=== PATIENT | male | born 1955 | race American Indian/Alaskan Native ===

== ENCOUNTER 2021-07-15 18:07 | Inpatient (IN) | payer MEDICAID ==
[~2021-07-15] VITALS: Ht 170.2 cm; Wt 147.2 kg
[~2021-07-15 18:07] MED LIST: ASPI-1265 PO; CETI10TA51 PO; CHOL100046 PO; EXEN2VIA SUBCUT; FLO0.4C PO; FOLI1TAB16 PO; METF-900 PO; MONT10TA21 PO; OMEG1CAP2 PO; PANT40TA54 PO; PRAV40TA3 PO
[2021-07-15 19:24] LABS: LYMPHOCYTES # (AUTO) 0.6 X10'3 (1.1-4.8); MEAN PLATELET VOLUME 8.8 FL (7.4-10.4)
[2021-07-15 19:25] LABS: BASOPHILS # (AUTO) 0.1 X10'3 (0-0.2); BASOPHILS % (AUTO) 0.6 % (0-1); EOSINOPHILS % (AUTO) 0.3 % (0-6); HEMATOCRIT 42.7 % (42.0-52.0); LYMPHOCYTES % (AUTO) 4.7 % (21-51); MEAN CORPUSCULAR HEMOGLOBIN 32.4 PG (27.0-31.0); MEAN CORPUSCULAR HGB CONC 35.2 g/dL (33.0-36.5); MEAN CORPUSCULAR VOLUME 92.1 FL (78-98); MONOCYTES # (AUTO) 1.2 X10'3 (0-0.9); MONOCYTES % (AUTO) 8.8 % (2-12); NEUTROPHILS # (AUTO) 11.4 X10'3 (1.8-7.7); NEUTROPHILS % (AUTO) 85.6 % (42-75); PLATELET COUNT 244 X10'3 (140-440); RED BLOOD COUNT 4.63 X10'6 (4.70-6.10); RED CELL DISTRIBUTION WIDTH 13.7 % (11.5-14.5); WHITE BLOOD COUNT 13.3 X10'3 (4.5-11.0)
[2021-07-15 19:35] LABS: APTT 25 SECONDS (22-32)
[2021-07-15 19:44] LABS: ALANINE AMINOTRANSFERASE 42 U/L (12-78); ALBUMIN 1.9 G/DL (3.4-5.0); ALBUMIN/GLOBULIN RATIO 0.4 (1.1-1.5); ALKALINE PHOSPHATASE 136 IU/L (46-116); ANION GAP 10 (8-16); ASPARTATE AMINO TRANSFERASE 45 U/L (10-37); BILIRUBIN,TOTAL 0.7 MG/DL (0.1-1.0); BLOOD UREA NITROGEN 32 MG/DL (7-18); BUN/CREATININE RATIO 19.4 (5.4-32.0); CHLORIDE 93 MMOL/L (99-107); CREATININE 1.65 MG/DL (0.60-1.10); GLUCOSE 258 MG/DL (70-104); POTASSIUM 3.5 MMOL/L (3.5-5.1); SODIUM 130 MMOL/L (135-145); TOTAL CARBON DIOXIDE 26.6 MMOL/L (24-32); TOTAL PROTEIN 7.3 G/DL (6.4-8.2); eGFR 42 ML/MIN
[2021-07-15] MEDS ORDERED: normal saline 1000ML IV soln IV ONE (20:15)
[2021-07-15 20:19] LABS: D-DIMER 10.63 MG/L FEU (0-0.50)
[2021-07-15 20:25] LABS: PLATELET ESTIMATE NORMAL; TOTAL CELLS COUNTED 100
[2021-07-15] MEDS ORDERED: iohexol 350MG/ML 100ml bottle IV ONE (20:33)
[2021-07-15] MEDS ORDERED: CefTRIAXone/D5W-Rocephin 1gm 50 ML IV ONE (21:20)
[2021-07-15] MEDS ORDERED: ketorolac tromethamine 15mg/ml inj. IV ONE (23:10)
[2021-07-15 23:32] LABS: CLARITY,URINE CLOUDY (Clear); COLOR,URINE YELLOW (Yellow); GLUCOSE, URINE >=1000 mg/dl (Neg); KETONES,URINE 15 mg/dl (Neg); LEUKOCYTE ESTERASE ,URINE MODERATE (Neg); NITRITES, URINE NEGATIVE (Neg); OCCULT BLOOD,URINE LARGE (Neg); PH,URINE 5.5 (4.8-8.0); PROTEIN,URINE TRACE mg/dl (Neg)
[2021-07-15 23:39] LABS: UA COLLECTION TYPE NON-SPECIFIED
[2021-07-15 23:41] LABS: RBC,URINE 20-50 /HPF (0-2); WBC,URINE 50-100 /HPF (0-4)
[2021-07-15 23:42] LABS: SQUAMOUS EPITHELIAL CELL,UR FEW /LPF (FEW)
[2021-07-15 23:43] LABS: BACTERIA,URINE 3+ /HPF (Neg); MUCUS STRANDS FEW /LPF (Neg); TRANSITIONAL EPI CELLS,URINE FEW /HPF; WBC CLUMPS,URINE MODERATE /HPF (NEGATIVE)
[2021-07-15 23:44] LABS: CELLULAR CAST 0-4 /LPF (NEGATIVE)
[2021-07-16] MEDS ORDERED: magnesium 2GM in 50ml NS 50 ML IV PRN (00:10)
[2021-07-16] MEDS ORDERED: acetaminophen 650mg rectal suppository RC PRN (00:10)
[2021-07-16] MEDS ORDERED: bisacodyl 10mg suppository rectal RC PRN (00:10)
[2021-07-16] MEDS ORDERED: mag hydrox/Alum hydrox/simeth 30ml oral suspension PO PRN (00:10)
[2021-07-16] MEDS ORDERED: magnesium Cl slow-release 64mg tablet PO PRN (00:10)
[2021-07-16] MEDS ORDERED: morphine 2 MG/ML inj. syringe IV PRN ×2 (00:10)
[2021-07-16] MEDS ORDERED: HYDROcodone/acetaminophen 5mg/325mg tablet PO PRN (00:10)
[2021-07-16] MEDS ORDERED: magnesium 4gm in 100ml NS 100 ML IV PRN (00:10)
[2021-07-16] MEDS ORDERED: potassium CL 10mEq/100ml bag 100 ML IV PRN (00:10)
[2021-07-16] MEDS ORDERED: diphenhydrAMINE 25mg capsule PO PRN (00:10)
[2021-07-16] MEDS ORDERED: ondansetron 4mg rapidly disintigrating tab PO PRN (00:10)
[2021-07-16] MEDS ORDERED: ondansetron/PF 4mg/2ml inj IV PRN (00:10)
[2021-07-16] MEDS ORDERED: diphenhydrAMINE 50 mg/ml inj IV PRN (00:10)
[2021-07-16] MEDS ORDERED: magnesium hydroxide 30ml (MOM) UD suspension PO PRN (00:10)
[2021-07-16] MEDS ORDERED: potassium Cl 20 mEq SR tablet PO PRN (00:10)
[2021-07-16] MEDS ORDERED: acetaminophen 325mg tablet PO PRN ×2 (00:10)
[2021-07-16] MEDS ORDERED: dextrose 50%-water 50ml dispensing syringe IV PRN ×2 (00:15)
[2021-07-16] MEDS ORDERED: insulin Lispro (HumaLOG) vial - multi-dose SQ SCH (00:15)
[2021-07-16] MEDS ORDERED: MESSAGE TO PHARMACY PO ONE (00:15)
[2021-07-16] MEDS ORDERED: glucagon, human recombinant 1mg kit SUBCUT PRN (00:15)
[2021-07-16] MEDS ORDERED: dextrose ORAL solution 15 GM/59 ML bottle PO PRN ×2 (00:15)
[2021-07-16] MEDS: normal saline 1000ml 1,000 ML IV SCH ×2 (00:54→10:10)
[2021-07-16 01:29] LABS: APTT 26 SECONDS (22-32)
[2021-07-16 01:33] LABS: HEMOGLOBIN A1C 8.7 % (4.5-6.2)
[2021-07-16 01:36] LABS: MAGNESIUM 2.2 MG/DL (1.5-2.4); PHOSPHORUS 2.2 MG/DL (2.3-4.5)
[2021-07-16 01:49] LABS: URINE AMPHETAMINE SCREEN NEGATIVE (Neg); URINE BARBITUATE SCREEN NEGATIVE (Neg); URINE BENZODIAZEPINES SCREEN NEGATIVE (Neg); URINE CANNABINOID SCREEN NEGATIVE (Neg); URINE COCAINE SCREEN NEGATIVE (Neg); URINE METHADONE SCREEN NEGATIVE (Neg); URINE OPIATE SCREEN NEGATIVE (Neg); URINE PHENCYCLIDINE SCREEN NEGATIVE (Neg)
[2021-07-16] MEDS: potassium Cl 20 mEq SR tablet PO PRN ×2 (02:26→09:36)
--- NOTE | 2021-07-16 02:28 | NUR ---
pt became sob and compl;aining of fall body chills and uncontrollable shaking. temp 98.2 and bg 223. charge nurse notified ad will continue to monitor
[2021-07-16] MEDS: docusate sod 100mg capsule PO SCH ×2 (08:00→20:33)
[2021-07-16] MEDS: K and/or MAG REPLACEMENT MC SCH ×2 (08:00→19:04)
--- NOTE | 2021-07-16 09:24 | NUR ---
PAGE SENT TO DR ATKINSON REGARDING DIET.
[2021-07-16] MEDS: furosemide 10 MG/1 ML 10ml inj IV SCH (09:35)
[2021-07-16] MEDS: atorvastatin 20mg tablet PO SCH (09:36)
[2021-07-16] MEDS: metoprolol succinate 25mg (24-HOUR) SR. Tablet PO SCH (09:36)
[2021-07-16] MEDS: lisinopril 10 MG tablet PO SCH (09:36)
[2021-07-16] MEDS: nitroGLYCERIN 0.2mg/hour patch TD SCH (09:37)
[2021-07-16] MEDS: heparin, porcine 5000 units/ml vial SQ SCH ×2 (09:37→16:00)
[2021-07-16] MEDS ORDERED: DULA1.5P SQ (11:33)
[2021-07-16 12:57] LABS: ALBUMIN 1.6 G/DL (3.4-5.0); ANION GAP 9 (8-16); BLOOD UREA NITROGEN 34 MG/DL (7-18); BUN/CREATININE RATIO 20.7 (5.4-32.0); CALCIUM 8.5 MG/DL (8.5-10.1); CHLORIDE 99 MMOL/L (99-107); CREATININE 1.64 MG/DL (0.60-1.10); GLUCOSE 250 MG/DL (70-104); POTASSIUM 3.5 MMOL/L (3.5-5.1); SODIUM 131 MMOL/L (135-145); TOTAL CARBON DIOXIDE 22.9 MMOL/L (24-32); eGFR 42 ML/MIN
--- NOTE | 2021-07-16 15:50 | NUR ---
PAGE SENT TO DR ATKINSON REGARDING PATIENT'S HEART BURN.
--- NOTE | 2021-07-16 17:02 | NUR ---
Patient in room PCU 3016. I have received report from Virginia STEVENS in the ED and had the opportunity to ask questions and assume patient care.
--- NOTE | 2021-07-16 17:19 | NUR ---
Page sent to provider for Tums Message: Room 3016B: Guilherme Flower: My ED admit is having some acid reflux, can I order him some tums? [place] [id number] [employer] Transaction number: [id number]
[2021-07-16] MEDS: calcium carbonate 500mg chew tablet PO SCH (17:58)
[2021-07-16 18:00] VITALS: BP 151/75
[2021-07-16] MEDS ORDERED: metoprolol tartrate 1mg/ml inj IV PRN (18:25)
[2021-07-16] MEDS ORDERED: nitroGLYCERIN 0.4mg SUBLingual tab SL PRN (18:25)
[2021-07-16] MEDS ORDERED: aminophylline 250mg/10ml inj. IV PRN (18:25)
[2021-07-16] MEDS ORDERED: regadenoson 0.4mg/5ml syringe IV PRN (18:25)
--- NOTE | 2021-07-16 18:30 | NUR ---
Problems reprioritized. Patient report given, questions answered & plan of care reviewed with Diego STEVENS.
[2021-07-16] MEDS: OMEGA-3/DHA/EPA/FISH OIL 1 EACH CAPSULE.DR PO SCH (20:00)
[2021-07-16] MEDS: lactobacillus rhamnosus 10,000 MMU CELLS/CAPSULE PO SCH (20:33)
[2021-07-16] MEDS ORDERED: pravastatin 40mg tablet PO SCH (21:00)
[2021-07-16] MEDS ORDERED: CefTRIAXone/D5W-Rocephin 1gm 50 ML IV SCH (21:00)
[2021-07-16] MEDS ORDERED: montelukast 10mg tablet PO SCH (21:00)
[2021-07-16] MEDS ORDERED: insulin glargine (Lantus) pen - multi-dose SQ SCH (21:00)
[2021-07-16] MEDS ORDERED: temazepam 15mg capsule PO PRN (21:00)
[2021-07-16 22:00] VITALS: BP 148/70
[2021-07-17] VITALS (11 sets, daily range): BP systolic 120–152; BP diastolic 40–78
[2021-07-17] MEDS: heparin, porcine 5000 units/ml vial SQ SCH ×2 (01:08→08:00)
[2021-07-17] MEDS: normal saline 1000ml 1,000 ML IV SCH ×2 (05:36→06:10)
--- NOTE | 2021-07-17 06:30 | NUR ---
Patient in room PCU 3016. I have received report from Diego STEVENS and had the opportunity to ask questions and assume patient care.
[2021-07-17 07:51] LABS: BASOPHILS % (AUTO) 0.2 % (0-1); EOSINOPHILS # (AUTO) 0.1 X10'3 (0-0.9); EOSINOPHILS % (AUTO) 0.6 % (0-6); HEMATOCRIT 36.9 % (42.0-52.0); HEMOGLOBIN 12.7 g/dl (14.0-17.9); LYMPHOCYTES % (AUTO) 6.7 % (21-51); MEAN CORPUSCULAR HGB CONC 34.5 g/dL (33.0-36.5); MEAN CORPUSCULAR VOLUME 92.8 FL (78-98); MEAN PLATELET VOLUME 9.2 FL (7.4-10.4); MONOCYTES # (AUTO) 1.5 X10'3 (0-0.9); MONOCYTES % (AUTO) 9.8 % (2-12); NEUTROPHILS # (AUTO) 12.6 X10'3 (1.8-7.7); NEUTROPHILS % (AUTO) 82.7 % (42-75); PLATELET COUNT 214 X10'3 (140-440); RED BLOOD COUNT 3.98 X10'6 (4.70-6.10); RED CELL DISTRIBUTION WIDTH 13.5 % (11.5-14.5); WHITE BLOOD COUNT 15.2 X10'3 (4.5-11.0)
[2021-07-17] MEDS ORDERED: aspirin 81mg tab.chew PO SCH (08:00)
[2021-07-17] MEDS ORDERED: tamsulosin 0.4mg capsule PO SCH (08:00)
[2021-07-17] MEDS ORDERED: folic acid 1mg tablet PO SCH (08:00)
[2021-07-17] MEDS: lisinopril 10 MG tablet PO SCH (08:00)
[2021-07-17] MEDS: docusate sod 100mg capsule PO SCH (08:00)
[2021-07-17] MEDS: metoprolol succinate 25mg (24-HOUR) SR. Tablet PO SCH (08:00)
[2021-07-17] MEDS ORDERED: pantoprazole 40mg Tablet.DR PO SCH (08:00)
[2021-07-17] MEDS ORDERED: cetirizine 10mg tablet PO SCH (08:00)
[2021-07-17] MEDS: nitroGLYCERIN 0.2mg/hour patch TD SCH (08:00)
[2021-07-17] MEDS: furosemide 10 MG/1 ML 10ml inj IV SCH (08:00)
[2021-07-17] MEDS ORDERED: cholecalciferol (vitamin D3) 1,000 unit (25mcg) tablet PO SCH (08:00)
[2021-07-17 08:08] LABS: ALANINE AMINOTRANSFERASE 35 U/L (12-78); ALBUMIN 1.6 G/DL (3.4-5.0); ALBUMIN/GLOBULIN RATIO 0.3 (1.1-1.5); ALKALINE PHOSPHATASE 117 IU/L (46-116); ANION GAP 11 (8-16); ASPARTATE AMINO TRANSFERASE 30 U/L (10-37); BILIRUBIN,TOTAL 0.5 MG/DL (0.1-1.0); BLOOD UREA NITROGEN 40 MG/DL (7-18); CALCIUM 8.8 MG/DL (8.5-10.1); CHLORIDE 103 MMOL/L (99-107); CHOLESTEROL 102 MG/DL (0-200); CREATININE 1.67 MG/DL (0.60-1.10); GLUCOSE 221 MG/DL (70-104); HDL CHOLESTEROL 17 MG/DL (35-60); LDL CHOLESTEROL 66 MG/DL (50-100); MAGNESIUM 2.4 MG/DL (1.5-2.4); PHOSPHORUS 3.1 MG/DL (2.3-4.5); POTASSIUM 3.3 MMOL/L (3.5-5.1); SODIUM 136 MMOL/L (135-145); TOTAL CARBON DIOXIDE 21.9 MMOL/L (24-32); TOTAL PROTEIN 6.4 G/DL (6.4-8.2); TRIGLYCERIDES 150 MG/DL (20-135); eGFR 41 ML/MIN
[2021-07-17] MEDS ORDERED: furosemide 40mg/4ml inj IV SCH (09:20)
[2021-07-17] MEDS: atorvastatin 20mg tablet PO SCH (09:33)
[2021-07-17] MEDS: lactobacillus rhamnosus 10,000 MMU CELLS/CAPSULE PO SCH (09:33)
[2021-07-17] MEDS: OMEGA-3/DHA/EPA/FISH OIL 1 EACH CAPSULE.DR PO SCH (09:34)
[2021-07-17] MEDS: calcium carbonate 500mg chew tablet PO SCH ×2 (09:34→13:18)
[2021-07-17 09:52] LABS: TOTAL CELLS COUNTED 100
[2021-07-17 09:53] LABS: PLATELET ESTIMATE NORMAL; SMUDGE CELLS FEW
--- NOTE | 2021-07-17 13:44 | NUR ---
While emptying the bedside commode, I noticed blood in his loose stool. When asked patient about it he said he has been experiencing blood in his stool for about a month.
--- NOTE | 2021-07-17 13:50 | NUR ---
PAGER ID: [phone] MESSAGE: Room 3016B: Kelvin Flower: Patient has blood in his stool when I emptied his bedside commode. Patient says its's been happening for about a month now. Would you like me to obtain a stool sample? [phone] [phone]
[2021-07-17] MEDS ORDERED: FURO40TA4 PO (13:53)
[2021-07-17] MEDS ORDERED: LISI10TA27 PO (13:53)
--- NOTE | 2021-07-17 15:30 | NUR ---
Patient is stable for discharge per MD. PIV removed and tele discontinued. Education and new medication have been explained and the patient was given the opportunity to ask questions. Patient was wheeled down to meet grandson to be taken home.
[2021-07-21] MEDS ORDERED: FLUC100T40 PO (10:19)
== END 2021-07-17 16:02 | disposition home or self-care (01) | DRG 194 ==
LOC: ER 18:10 → ED HOLD 07-16 00:13 → PCU 3S 07-16 16:30
PROVIDERS: ADMIT Family Medicine; ATTEND Family Medicine
PROC: B32T1ZZ Computerized Tomography (CT Scan) of Left Pulmonary Artery using Low Osmolar Contrast (ICD-10-PCS; principal; 2021-07-15)
PROC: B3201ZZ Computerized Tomography (CT Scan) of Thoracic Aorta using Low Osmolar Contrast (ICD-10-PCS; 2021-07-15)
PROC: B32S1ZZ Computerized Tomography (CT Scan) of Right Pulmonary Artery using Low Osmolar Contrast (ICD-10-PCS; 2021-07-15)
PROC: 4A02XM4 Measurement of Cardiac Total Activity, External Approach (ICD-10-PCS; 2021-07-17)
PROC: 3E073KZ Introduction of Other Diagnostic Substance into Coronary Artery, Percutaneous Approach (ICD-10-PCS; 2021-07-17)
DX: I13.0 Hypertensive heart and chronic kidney disease with heart failure and stage 1 through stage 4 chronic kidney disease, or unspecified chronic kidney disease (principal); N17.9 Acute kidney failure, unspecified; E86.0 Dehydration; E88.09 Other disorders of plasma-protein metabolism, not elsewhere classified; E87.1 Hypo-osmolality and hyponatremia; I27.81 Cor pulmonale (chronic); R07.9 Chest pain, unspecified; I50.33 Acute on chronic diastolic (congestive) heart failure; E87.6 Hypokalemia; N40.0 Benign prostatic hyperplasia without lower urinary tract symptoms; E78.00 Pure hypercholesterolemia, unspecified; E11.42 Type 2 diabetes mellitus with diabetic polyneuropathy; E78.5 Hyperlipidemia, unspecified; G47.30 Sleep apnea, unspecified; F41.9 Anxiety disorder, unspecified; K21.9 Gastro-esophageal reflux disease without esophagitis; N18.30 Chronic kidney disease, stage 3 unspecified; K57.90 Diverticulosis of intestine, part unspecified, without perforation or abscess without bleeding; E11.22 Type 2 diabetes mellitus with diabetic chronic kidney disease; Z20.822 Contact with and (suspected) exposure to COVID-19; N39.0 Urinary tract infection, site not specified; E66.01 Morbid (severe) obesity due to excess calories; Z68.43 Body mass index [BMI] 50.0-59.9, adult; Z83.3 Family history of diabetes mellitus; Z79.899 Other long term (current) drug therapy; Z87.442 Personal history of urinary calculi; Z86.711 Personal history of pulmonary embolism; Z87.891 Personal history of nicotine dependence; Z79.82 Long term (current) use of aspirin
CPT/HCPCS: 36415; 71045; 71275; 78452; 80048; 80053; 80061; 80305; 81001; 82948; 83036; 83605; 83690; 83735; 83880; 84100; 84132; 84145; 84443; 84484; 85007; 85025; 85379; 85610; 85730; 87040; 87077; 87088; 87635; 93005; 93017; 93306; 99285; A9500; C9803; G0378; J0280; J0696; J1644; J1815; J1885; J1940; J2785; J7030; Q9967

== ENCOUNTER 2021-07-22 10:49 | Inpatient (IN) | payer MEDICAID ==
[~2021-07-22] VITALS: Ht 170.2 cm; Wt 147.7 kg
[~2021-07-22 10:49] MED LIST changes: +DULA1.5P SQ; -EXEN2VIA SUBCUT; +FLUC100T40 PO; +FURO40TA4 PO; +LISI10TA27 PO; -METF-900 PO; -MONT10TA21 PO; -PANT40TA54 PO
[2021-07-22] MEDS ORDERED: normal saline 1000ml 1,000 ML IV ONE ×2 (11:55)
[2021-07-22 12:16] LABS: BASOPHILS # (AUTO) 0.1 X10'3 (0-0.2); BASOPHILS % (AUTO) 0.4 % (0-1); EOSINOPHILS # (AUTO) 0.1 X10'3 (0-0.9); EOSINOPHILS % (AUTO) 0.7 % (0-6); HEMATOCRIT 31.7 % (42.0-52.0); HEMOGLOBIN 10.7 g/dl (14.0-17.9); LYMPHOCYTES % (AUTO) 6.1 % (21-51); MEAN CORPUSCULAR HEMOGLOBIN 32.1 PG (27.0-31.0); MEAN CORPUSCULAR HGB CONC 33.8 g/dL (33.0-36.5); MEAN CORPUSCULAR VOLUME 95.2 FL (78-98); MEAN PLATELET VOLUME 8.2 FL (7.4-10.4); MONOCYTES # (AUTO) 0.8 X10'3 (0-0.9); NEUTROPHILS # (AUTO) 14.6 X10'3 (1.8-7.7); NEUTROPHILS % (AUTO) 87.8 % (42-75); PLATELET COUNT 342 X10'3 (140-440); RED BLOOD COUNT 3.33 X10'6 (4.70-6.10); RED CELL DISTRIBUTION WIDTH 13.8 % (11.5-14.5); WHITE BLOOD COUNT 16.6 X10'3 (4.5-11.0)
[2021-07-22 12:28] LABS: ALANINE AMINOTRANSFERASE 26 U/L (12-78); ALBUMIN 1.9 G/DL (3.4-5.0); ALBUMIN/GLOBULIN RATIO 0.3 (1.1-1.5); ALKALINE PHOSPHATASE 126 IU/L (46-116); ANION GAP 13 (8-16); ASPARTATE AMINO TRANSFERASE 16 U/L (10-37); BILIRUBIN,TOTAL 0.4 MG/DL (0.1-1.0); BLOOD UREA NITROGEN 40 MG/DL (7-18); BUN/CREATININE RATIO 16.3 (5.4-32.0); CALCIUM 9.1 MG/DL (8.5-10.1); CHLORIDE 103 MMOL/L (99-107); CREATININE 2.45 MG/DL (0.60-1.10); GLUCOSE 362 MG/DL (70-104); POTASSIUM 3.3 MMOL/L (3.5-5.1); SODIUM 141 MMOL/L (135-145); TOTAL CARBON DIOXIDE 25.5 MMOL/L (24-32); TOTAL PROTEIN 7.5 G/DL (6.4-8.2); eGFR 27 ML/MIN
[2021-07-22] MEDS ORDERED: LISI10TA27 PO (15:40)
[2021-07-22] MEDS ORDERED: FURO-149 PO (15:40)
[2021-07-22] MEDS ORDERED: FLUC100T25 PO (15:43)
[2021-07-22] MEDS ORDERED: ondansetron/PF 4mg/2ml inj IV PRN (15:45)
[2021-07-22] MEDS ORDERED: acetaminophen 325mg tablet PO PRN ×2 (15:45)
[2021-07-22] MEDS ORDERED: magnesium 2GM in 50ml NS 50 ML IV PRN (15:45)
[2021-07-22] MEDS ORDERED: morphine 2 MG/ML inj. syringe IV PRN (15:45)
[2021-07-22] MEDS: normal saline 1000ml 1,000 ML IV SCH ×2 (15:45→23:57)
[2021-07-22] MEDS ORDERED: potassium CL 10mEq/100ml bag 100 ML IV PRN (15:45)
[2021-07-22] MEDS ORDERED: HYDROcodone/acetaminophen 5mg/325mg tablet PO PRN (15:45)
[2021-07-22] MEDS ORDERED: magnesium Cl slow-release 64mg tablet PO PRN (15:45)
[2021-07-22] MEDS ORDERED: magnesium 4gm in 100ml NS 100 ML IV PRN (15:45)
[2021-07-22] MEDS ORDERED: CefTRIAXone 2gm/D5W 50ml BAG 50 ML IV ONE (15:45)
[2021-07-22] MEDS ORDERED: dextrose 50%-water 50ml dispensing syringe IV PRN ×2 (16:45)
[2021-07-22] MEDS ORDERED: glucagon, human recombinant 1mg kit SUBCUT PRN (16:45)
[2021-07-22] MEDS ORDERED: dextrose ORAL solution 15 GM/59 ML bottle PO PRN ×2 (16:45)
[2021-07-22] MEDS ORDERED: MESSAGE TO PHARMACY PO ONE (16:45)
[2021-07-22 17:27] LABS: CLARITY,URINE SLIGHTLY CLOUDY (Clear); GLUCOSE, URINE 500 mg/dl (Neg); KETONES,URINE NEGATIVE (Neg); LEUKOCYTE ESTERASE ,URINE SMALL (Neg); NITRITES, URINE NEGATIVE (Neg); OCCULT BLOOD,URINE SMALL (Neg); PH,URINE 5.5 (4.8-8.0); PROTEIN,URINE NEGATIVE (Neg); UROBILINOGEN,URINE 0.2 E.U/dL (0.2-1.0)
[2021-07-22 17:36] LABS: COLOR,URINE YELLOW (Yellow); UA COLLECTION TYPE NON-SPECIFIED
[2021-07-22 17:37] LABS: BACTERIA,URINE 3+ /HPF (Neg); RBC,URINE 0-2 /HPF (0-2); WBC,URINE 20-30 /HPF (0-4)
[2021-07-22 17:38] LABS: YEAST FEW /HPF (NEGATIVE)
[2021-07-22 17:39] LABS: SQUAMOUS EPITHELIAL CELL,UR FEW /LPF (FEW); TRANSITIONAL EPI CELLS,URINE FEW /HPF; URIC ACID CRYSTALS FEW /HPF (NEGATIVE)
[2021-07-22] MEDS: docusate sod 100mg capsule PO SCH (20:00)
[2021-07-22] MEDS: heparin, porcine 5000 units/ml vial SQ SCH (20:00)
[2021-07-22] MEDS: K and/or MAG REPLACEMENT MC SCH (20:20)
[2021-07-22] MEDS ORDERED: temazepam 15mg capsule PO PRN (21:00)
--- NOTE | 2021-07-22 21:45 | NUR ---
PT PLACED ON HOME CPAP PER PT REQUEST.
[2021-07-22] MEDS: insulin glargine (Lantus) pen - multi-dose SQ SCH (22:01)
[2021-07-22] MEDS: insulin Lispro (HumaLOG) vial - multi-dose SQ SCH (22:04)
[2021-07-22] MEDS: pravastatin 40mg tablet PO SCH (22:06)
[2021-07-23 05:20] VITALS: BP 149/84
[2021-07-23 06:00] VITALS: BP 157/84
--- NOTE | 2021-07-23 06:15 | NUR ---
Patient in room PCU 3025. I have received report from Joseline STEVENS and had the opportunity to ask questions and assume patient care.
--- NOTE | 2021-07-23 06:18 | NUR ---
The patient, TRANG GREENWOOD, 66 y/o, M admitted by JOAN JENKINS MD, Patient arrived to PCU floor at 0510, in stable condition. patient alert and oriented X's4, vitals are within limits. Tele monitor placed on patient
[2021-07-23 07:29] LABS: ALANINE AMINOTRANSFERASE 20 U/L (12-78); ALBUMIN 1.6 G/DL (3.4-5.0); ALBUMIN/GLOBULIN RATIO 0.3 (1.1-1.5); ALKALINE PHOSPHATASE 108 IU/L (46-116); ANION GAP 10 (8-16); ASPARTATE AMINO TRANSFERASE 17 U/L (10-37); BILIRUBIN,TOTAL 0.3 MG/DL (0.1-1.0); BLOOD UREA NITROGEN 26 MG/DL (7-18); BUN/CREATININE RATIO 15.1 (5.4-32.0); CALCIUM 8.2 MG/DL (8.5-10.1); CHLORIDE 108 MMOL/L (99-107); CREATININE 1.72 MG/DL (0.60-1.10); GLUCOSE 296 MG/DL (70-104); SODIUM 142 MMOL/L (135-145); TOTAL CARBON DIOXIDE 24.5 MMOL/L (24-32); TOTAL PROTEIN 6.5 G/DL (6.4-8.2); eGFR 40 ML/MIN
[2021-07-23 07:30] LABS: BASOPHILS % (AUTO) 0.4 % (0-1); EOSINOPHILS # (AUTO) 0.1 X10'3 (0-0.9); EOSINOPHILS % (AUTO) 0.6 % (0-6); HEMATOCRIT 26.8 % (42.0-52.0); LYMPHOCYTES # (AUTO) 0.7 X10'3 (1.1-4.8); LYMPHOCYTES % (AUTO) 6.5 % (21-51); MEAN CORPUSCULAR HEMOGLOBIN 31.9 PG (27.0-31.0); MEAN CORPUSCULAR HGB CONC 33.6 g/dL (33.0-36.5); MEAN CORPUSCULAR VOLUME 94.9 FL (78-98); MEAN PLATELET VOLUME 8.4 FL (7.4-10.4); MONOCYTES # (AUTO) 0.6 X10'3 (0-0.9); MONOCYTES % (AUTO) 5.4 % (2-12); NEUTROPHILS % (AUTO) 87.1 % (42-75); PLATELET COUNT 317 X10'3 (140-440); RED BLOOD COUNT 2.83 X10'6 (4.70-6.10); RED CELL DISTRIBUTION WIDTH 14.1 % (11.5-14.5); WHITE BLOOD COUNT 11.4 X10'3 (4.5-11.0)
[2021-07-23] MEDS: normal saline 1000ml 1,000 ML IV SCH ×3 (07:57→23:57)
[2021-07-23] MEDS ORDERED: furosemide 40mg tablet PO SCH (08:00)
[2021-07-23] MEDS: K and/or MAG REPLACEMENT MC SCH ×2 (08:00→20:31)
[2021-07-23] MEDS: heparin, porcine 5000 units/ml vial SQ SCH ×2 (09:42→19:36)
[2021-07-23] MEDS: potassium Cl 20 mEq SR tablet PO PRN ×3 (09:43→21:01)
[2021-07-23] MEDS: docusate sod 100mg capsule PO SCH ×2 (09:47→19:36)
[2021-07-23] MEDS: lisinopril 10 MG tablet PO SCH (09:47)
[2021-07-23] MEDS: folic acid 1mg tablet PO SCH (09:47)
[2021-07-23] MEDS: tamsulosin 0.4mg capsule PO SCH (09:47)
[2021-07-23] MEDS: aspirin 81mg tab.chew PO SCH (09:47)
[2021-07-23] MEDS: cetirizine 10mg tablet PO SCH (09:47)
--- NOTE | 2021-07-23 09:59 | NUR ---
Paged Dr. Chavez regarding patient potassium of 3.0 Message: [id number], Mundo Warren. K+ is 3.0, I am replacing per protocol. Liseth U 0630.
[2021-07-23] MEDS: CefTRIAXone/D5W-Rocephin 1gm 50 ML IV SCH (10:21)
[2021-07-23 11:00] VITALS: BP 141/78
[2021-07-23] MEDS: insulin Lispro (HumaLOG) vial - multi-dose SQ SCH ×2 (11:06→15:02)
[2021-07-23] MEDS: fluconazole-Diflucan 200mg/NS 100 ML IV SCH (11:34)
[2021-07-23 15:00] VITALS: BP 144/71
--- NOTE | 2021-07-23 15:56 | NUR ---
DM consult: Pt with T2DM with A1c 9.8%, up from 8.7% 07/16/21 per EMR. Attempted visit with pt at bedside however pt unavailable working with PT. Will f/u for DM education at another time. Addendum: 07/23/21 at [address] Amended: Links added.
[2021-07-23 18:00] VITALS: BP 157/70
--- NOTE | 2021-07-23 18:37 | NUR ---
Problems reprioritized. Patient report given, questions answered & plan of care reviewed with Magali STEVENS, patient stable at transfer of care.
[2021-07-23] MEDS: lactobacillus rhamnosus 10,000 MMU CELLS/CAPSULE PO SCH (19:36)
[2021-07-23] MEDS: insulin glargine (Lantus) pen - multi-dose SQ SCH (21:00)
[2021-07-23] MEDS: pravastatin 40mg tablet PO SCH (21:02)
[2021-07-23 22:00] VITALS: BP 119/73
[2021-07-24 02:00] VITALS: BP 122/71
[2021-07-24 06:00] VITALS: BP 137/89
--- NOTE | 2021-07-24 06:08 | NUR ---
Patient in room PCU 3025. I have received report from Magali STEVENS and had the opportunity to ask questions and assume patient care.
--- NOTE | 2021-07-24 06:54 | NUR ---
Problems reprioritized. Patient report given, questions answered & plan of care reviewed with Liseth STEVENS .
[2021-07-24 07:12] LABS: HEMOGLOBIN 9.2 g/dl (14.0-17.9); MEAN CORPUSCULAR VOLUME 94.1 FL (78-98); WHITE BLOOD COUNT 9.3 X10'3 (4.5-11.0)
[2021-07-24 07:15] LABS: BASOPHILS % (AUTO) 0.4 % (0-1); EOSINOPHILS # (AUTO) 0.1 X10'3 (0-0.9); EOSINOPHILS % (AUTO) 1.3 % (0-6); HEMATOCRIT 26.1 % (42.0-52.0); LYMPHOCYTES # (AUTO) 1.1 X10'3 (1.1-4.8); MEAN CORPUSCULAR HEMOGLOBIN 33.1 PG (27.0-31.0); MEAN CORPUSCULAR HGB CONC 35.2 g/dL (33.0-36.5); MONOCYTES # (AUTO) 0.6 X10'3 (0-0.9); MONOCYTES % (AUTO) 6.4 % (2-12); NEUTROPHILS # (AUTO) 7.5 X10'3 (1.8-7.7); NEUTROPHILS % (AUTO) 79.9 % (42-75); PLATELET COUNT 330 X10'3 (140-440); RED BLOOD COUNT 2.77 X10'6 (4.70-6.10)
[2021-07-24 07:29] LABS: ALANINE AMINOTRANSFERASE 26 U/L (12-78); ALBUMIN 1.7 G/DL (3.4-5.0); ALBUMIN/GLOBULIN RATIO 0.3 (1.1-1.5); ALKALINE PHOSPHATASE 104 IU/L (46-116); ANION GAP 7 (8-16); ASPARTATE AMINO TRANSFERASE 26 U/L (10-37); BILIRUBIN,TOTAL 0.4 MG/DL (0.1-1.0); BLOOD UREA NITROGEN 16 MG/DL (7-18); BUN/CREATININE RATIO 13.7 (5.4-32.0); CALCIUM 8.3 MG/DL (8.5-10.1); CHLORIDE 109 MMOL/L (99-107); CREATININE 1.17 MG/DL (0.60-1.10); GLUCOSE 211 MG/DL (70-104); POTASSIUM 3.3 MMOL/L (3.5-5.1); SODIUM 139 MMOL/L (135-145); TOTAL CARBON DIOXIDE 22.8 MMOL/L (24-32); TOTAL PROTEIN 6.8 G/DL (6.4-8.2); eGFR 63 ML/MIN
[2021-07-24] MEDS: K and/or MAG REPLACEMENT MC SCH ×2 (08:00→19:45)
[2021-07-24 08:37] LABS: TOTAL CELLS COUNTED 100
[2021-07-24 08:38] LABS: PLATELET ESTIMATE NORMAL
[2021-07-24] MEDS: CefTRIAXone/D5W-Rocephin 1gm 50 ML IV SCH (10:37)
[2021-07-24] MEDS: lactobacillus rhamnosus 10,000 MMU CELLS/CAPSULE PO SCH ×2 (10:38→19:43)
[2021-07-24] MEDS: cetirizine 10mg tablet PO SCH (10:38)
[2021-07-24] MEDS: aspirin 81mg tab.chew PO SCH (10:38)
[2021-07-24] MEDS: tamsulosin 0.4mg capsule PO SCH (10:38)
[2021-07-24] MEDS: heparin, porcine 5000 units/ml vial SQ SCH ×2 (10:39→19:43)
[2021-07-24] MEDS: folic acid 1mg tablet PO SCH (10:39)
[2021-07-24] MEDS: docusate sod 100mg capsule PO SCH ×2 (10:39→19:44)
[2021-07-24] MEDS: lisinopril 10 MG tablet PO SCH (10:39)
[2021-07-24] MEDS: insulin Lispro (HumaLOG) vial - multi-dose SQ SCH (10:42)
[2021-07-24 11:00] VITALS: BP 150/85
[2021-07-24] MEDS: fluconazole-Diflucan 200mg/NS 100 ML IV SCH (12:21)
[2021-07-24] MEDS: potassium Cl 20 mEq SR tablet PO PRN ×2 (12:21→18:55)
--- NOTE | 2021-07-24 14:26 | NUR ---
F/u for DM consult: Second attempted visit at bedside however pt sleeping with earbuds in. Written DM education with RD contact information placed at patient's bedside. Will remain available and attempt f/u verbal education at another time. Addendum: 07/24/21 at [address] Amended: Links added.
[2021-07-24 15:00] VITALS: BP 159/84
[2021-07-24 18:00] VITALS: BP 137/76
[2021-07-24] MEDS: normal saline 1000ml 1,000 ML IV SCH ×2 (18:00→20:00)
--- NOTE | 2021-07-24 18:52 | NUR ---
Problems reprioritized. Patient report given, questions answered & plan of care reviewed with Magali STEVENS, patient stable at transfer of care.
[2021-07-24] MEDS: pravastatin 40mg tablet PO SCH (20:23)
[2021-07-24] MEDS: insulin glargine (Lantus) pen - multi-dose SQ SCH (20:30)
[2021-07-24 22:00] VITALS: BP 141/79
[2021-07-25] MEDS: normal saline 1000ml 1,000 ML IV SCH ×2 (00:56→10:33)
[2021-07-25] MEDS: potassium Cl 20 mEq SR tablet PO PRN ×2 (01:08→10:31)
[2021-07-25 02:00] VITALS: BP 148/80
--- NOTE | 2021-07-25 06:36 | NUR ---
Problems reprioritized. Patient report given, questions answered & plan of care reviewed with Clarisa STEVENS .
[2021-07-25 06:40] LABS: BASOPHILS # (AUTO) 0.1 X10'3 (0-0.2); BASOPHILS % (AUTO) 0.7 % (0-1); EOSINOPHILS # (AUTO) 0.1 X10'3 (0-0.9); EOSINOPHILS % (AUTO) 1.5 % (0-6); HEMOGLOBIN 9.1 g/dl (14.0-17.9); LYMPHOCYTES # (AUTO) 1.2 X10'3 (1.1-4.8); LYMPHOCYTES % (AUTO) 13.4 % (21-51); MEAN CORPUSCULAR HEMOGLOBIN 33.2 PG (27.0-31.0); MEAN CORPUSCULAR VOLUME 94.7 FL (78-98); MEAN PLATELET VOLUME 7.7 FL (7.4-10.4); MONOCYTES # (AUTO) 0.4 X10'3 (0-0.9); MONOCYTES % (AUTO) 4.9 % (2-12); NEUTROPHILS # (AUTO) 7.1 X10'3 (1.8-7.7); NEUTROPHILS % (AUTO) 79.5 % (42-75); PLATELET COUNT 319 X10'3 (140-440); RED BLOOD COUNT 2.74 X10'6 (4.70-6.10); WHITE BLOOD COUNT 8.9 X10'3 (4.5-11.0)
[2021-07-25 06:52] LABS: ALANINE AMINOTRANSFERASE 23 U/L (12-78); ALBUMIN 1.6 G/DL (3.4-5.0); ALBUMIN/GLOBULIN RATIO 0.3 (1.1-1.5); ALKALINE PHOSPHATASE 90 IU/L (46-116); ANION GAP 9 (8-16); ASPARTATE AMINO TRANSFERASE 31 U/L (10-37); BILIRUBIN,TOTAL 0.3 MG/DL (0.1-1.0); BLOOD UREA NITROGEN 14 MG/DL (7-18); CALCIUM 7.6 MG/DL (8.5-10.1); CHLORIDE 110 MMOL/L (99-107); GLUCOSE 173 MG/DL (70-104); POTASSIUM 3.2 MMOL/L (3.5-5.1); SODIUM 142 MMOL/L (135-145); TOTAL CARBON DIOXIDE 22.8 MMOL/L (24-32); TOTAL PROTEIN 6.9 G/DL (6.4-8.2); eGFR 75 ML/MIN
[2021-07-25 07:00] VITALS: BP 147/82
[2021-07-25] MEDS: K and/or MAG REPLACEMENT MC SCH (08:00)
[2021-07-25] MEDS: insulin Lispro (HumaLOG) vial - multi-dose SQ SCH ×2 (10:30→13:16)
[2021-07-25] MEDS: docusate sod 100mg capsule PO SCH (10:31)
[2021-07-25] MEDS: folic acid 1mg tablet PO SCH (10:31)
[2021-07-25] MEDS: cetirizine 10mg tablet PO SCH (10:31)
[2021-07-25] MEDS: lactobacillus rhamnosus 10,000 MMU CELLS/CAPSULE PO SCH (10:32)
[2021-07-25] MEDS: aspirin 81mg tab.chew PO SCH (10:32)
[2021-07-25] MEDS: lisinopril 10 MG tablet PO SCH (10:32)
[2021-07-25] MEDS: CefTRIAXone/D5W-Rocephin 1gm 50 ML IV SCH (10:33)
[2021-07-25] MEDS: tamsulosin 0.4mg capsule PO SCH (10:33)
[2021-07-25] MEDS: fluconazole-Diflucan 200mg/NS 100 ML IV SCH (10:33)
[2021-07-25] MEDS: heparin, porcine 5000 units/ml vial SQ SCH (10:35)
[2021-07-25 11:00] VITALS: BP 154/93
[2021-07-25] MEDS ORDERED: LACT1CAP26 PO (14:19)
[2021-07-25] MEDS ORDERED: FLUC100T8 PO (14:19)
[2021-07-25] MEDS ORDERED: CEFD300C3 PO (14:19)
--- NOTE | 2021-07-25 15:49 | NUR ---
Pt was DC to home an d picked up by a friend. PIV was removed with cannula intact. DC instructions and warning s/s were reviewed with patient and he verbalized understanding. PT alert, oriented , and appropriated at time of DC. Pt took all belongings including cpap and phone home.
[2021-07-26 13:00] LABS: % FREE PSA 3.4 % (.); PSA, FREE 0.1 ng/mL
== END 2021-07-25 15:32 | disposition home health service (06) | DRG 420 ==
LOC: ER 10:52 → ED HOLD 15:47 → UNDOADMIN 15:47 → PCU 3S 07-23 05:28
PROVIDERS: ADMIT Internal Medicine; ATTEND Family Medicine
PROC: 5A09457 Assistance with Respiratory Ventilation, 24-96 Consecutive Hours, Continuous Positive Airway Pressure (ICD-10-PCS; principal; 2021-07-23)
DX: E11.65 Type 2 diabetes mellitus with hyperglycemia (principal); N17.9 Acute kidney failure, unspecified; N13.8 Other obstructive and reflux uropathy; Z68.43 Body mass index [BMI] 50.0-59.9, adult; B37.49 Other urogenital candidiasis; Z20.822 Contact with and (suspected) exposure to COVID-19; E11.22 Type 2 diabetes mellitus with diabetic chronic kidney disease; E78.00 Pure hypercholesterolemia, unspecified; E66.01 Morbid (severe) obesity due to excess calories; E78.5 Hyperlipidemia, unspecified; E87.6 Hypokalemia; N20.0 Calculus of kidney; N18.30 Chronic kidney disease, stage 3 unspecified; G47.33 Obstructive sleep apnea (adult) (pediatric); K92.1 Melena; I12.9 Hypertensive chronic kidney disease with stage 1 through stage 4 chronic kidney disease, or unspecified chronic kidney disease; G89.29 Other chronic pain; K59.09 Other constipation; N30.00 Acute cystitis without hematuria; N40.1 Benign prostatic hyperplasia with lower urinary tract symptoms; T50.2X5A Adverse effect of carbonic-anhydrase inhibitors, benzothiadiazides and other diuretics, initial encounter; Z79.899 Other long term (current) drug therapy; Z83.3 Family history of diabetes mellitus; Z87.442 Personal history of urinary calculi; Y92.89 Other specified places as the place of occurrence of the external cause
CPT/HCPCS: 36415; 71045; 74176; 80053; 81001; 82948; 83036; 83605; 83735; 84145; 84153; 84154; 85007; 85025; 87040; 87081; 87088; 87635; 97116; 97162; 97530; 99285; C9803; G0378; J0696; J1450; J1644; J1815; J7030